=== PATIENT | male | born 1955 | race Caucasian/White ===

== ENCOUNTER 2023-11-25 06:34 | Inpatient (IN) | payer MEDICARE, OTHER, SELFPAY ==
--- NOTE | 2023-11-16 06:45 | CM ---
Addendum entered by Merary Jamison 11/25/23 06:19:
Correction to below: surgery date is 11/25/23.
Original Note:
Patient is scheduled for an elective L TSA on 11/22/23. Spoke with patient and his prior to surgery via telephone. Patient had R TKR and L TKR at , both in 2021. Reintroduced role of Orthopedic Navigator. Patient reports that he lives with his
in a two story home. There are six steps to enter and a flight of steps to the second floor. He has a bedroom on the first floor which is where he plans to stay initially. He currently functions independently. He has a cane and rolling walker.
He has had services through [facility]. PCP is Dr. Rufus Lewis.
Discussed orthopedic program and post surgical plans. Reviewed anticipated length of stay and assistance that he may need at discharge. Explained that goal is for him to return home at discharge. Also reviewed MD follow up, home exercise program
after surgery and transition to outpatient therapy. Patient is in agreement with tentative plan and states that his will be home with him and can assist if needed.
Patient will complete online education.
Plan: Orthopedic Navigator will be involved in the care of patient after surgery and will reassess discharge needs at that time.
[2023-11-22 15:43] VITALS: BMI 36.0
[2023-11-25] VITALS (14 sets, daily range): BP systolic 110–146; BP diastolic 61–92; BMI 36.0; BMI 36.1
--- NOTE | 2023-11-25 11:37 | W.PN.UPDATE ---
Update Note
Progress Note Update
L shoulder OA s/p L TSA w/ Dr Robert 11/25/23
- s/p L TKA, 12/2021, and R TKA, 06/2022, by Dr Sargent
DVT prophylaxis - Xarelto at modified dosing, b/l venous foot pumps
- Can resume Xarelto 20 mg qPM on POD 3 if remaining hemodynamically stable
HTN - + parameters - monitor BP
NSVT and Permanent AF - monitor on tele
- Continue Flecainide and Metoprolol
- Xarelto resumption as stated above
ROJELIO, non-compliant w/ device - monitor on tele
- IS
- Add supplemental O2 HS
GERD - resume PPI therapy BID
BPH w/ urinary retention - monitor voids
- Bladder scan and straight cath prn. Will check PVRs
- Will resume Finasteride and Tamsulosin immediately after surgery
HLD
DDD
?MRSA hx - all MRSA swabs on file negative
Obesity, BMI 36.0
[2023-11-25] MEDS: NORMOSOL-R 1000 IV ×2 (12:06→16:09)
[2023-11-25] MEDS: TYLENOL 1000 MG PO (12:06)
[2023-11-25] MEDS: CELEBREX 200 MG PO (12:06)
--- NOTE | 2023-11-25 12:09 | CM ---
Reviewed chart. Patient admitted as planned for elective L TSA. The discharge plan is for patient to return home at discharge. He will have support from his when he goes home. Reviewed that he will do a home exercise program upon discharge
after surgery and that he will not need VN services. Also reviewed transition to outpatient PT and MD follow up.
Patient will use [facility] pharmacy for discharge prescriptions.
No needs currently identified.
[2023-11-25] MEDS: FLOMAX 0.400000000000000022 MG PO ×2 (15:59→21:14)
[2023-11-25] MEDS: TYLENOL 650 MG PO ×2 (17:07→19:35)
[2023-11-25] MEDS: XARELTO 10 MG PO (17:07)
--- NOTE | 2023-11-25 18:10 | PTCARENOTE ---
Pt received from PACU in unit bed. AAOx3. Expressing 1/10 pain at site of L TSA. Neurovascular assessment as documented. (L) shoulder with dressing C/D/I. (L) arm in sling; non-weight bearing ordered. SaO2 96% on room air. Lungs clear to
auscultation. Sinus rhythm with 1st degree AV block on environmental monitoring technician. Radial and pedal pulses palpable. Abdomen round. (+) bowel sounds. Pt with history of retention following surgery. Assisted oob chair with minimal assistance. Pt ate 100% of
dinner. Normosol infusing @ 100ml/hr.
[2023-11-25] MEDS: PROTONIX 20 MG PO (19:35)
[2023-11-25] MEDS: COLACE 100 MG PO (19:35)
[2023-11-25] MEDS: SENOKOT 17.1999999999999993 MG PO (19:35)
[2023-11-25] MEDS: BACTROBAN 2% OINTMENT 1 APPLIC NASAL (19:36)
[2023-11-25] MEDS: TAMBOCOR 100 MG PO (19:36)
[2023-11-25] MEDS: ANCEF 5 IV (19:36)
[2023-11-25] MEDS: LIPITOR 20 MG PO (21:16)
[2023-11-26] MEDS: TYLENOL PO ×2 (00:30→04:00)
[2023-11-26] MEDS: ROXICODONE 5 MG PO (01:34)
[2023-11-26 03:00] VITALS: BP 122/64
[2023-11-26] MEDS: ANCEF 5 IV (04:29)
--- NOTE | 2023-11-26 04:48 | PTCARENOTE ---
Pt voiding without difficulty, clear yellow, PVR for 197ml @ this time.
[2023-11-26 07:35] VITALS: BP 125/75
[2023-11-26] MEDS: TYLENOL 650 MG PO (07:55)
[2023-11-26] MEDS: PROTONIX 20 MG PO (07:55)
[2023-11-26] MEDS: TAMBOCOR 100 MG PO (07:55)
[2023-11-26] MEDS: SENOKOT 17.1999999999999993 MG PO (07:55)
[2023-11-26] MEDS: BACTROBAN 2% OINTMENT 1 APPLIC NASAL (07:56)
[2023-11-26] MEDS: COLACE 100 MG PO (07:56)
[2023-11-26] MEDS: TOPROL XL 25 MG PO (07:56)
[2023-11-26] MEDS: PROSCAR 5 MG PO (07:56)
--- NOTE | 2023-11-26 08:47 | W.PN.ORTHO ---
Today's Communication / Plan
-
PT/OT
Sling
Xarelto
Discharge to home today
Assessment
.
Distal Motor Intact: Yes
Dressing:
Clean, dry and intact.
Plan
.
Surgery / Date: L TSA 11/25/23 Jakob
DVT Prophylaxis: Other (Xarelto)
Activity:
Out of bed.
PT/OT
Discharge Plan: Home
Subjective
.
.:
Patient resting comfortably.
Vital Signs and Labs
.
Vital Signs and Labs:
Temp Pulse Resp BP Pulse Ox
98.1 F 66 18 125/75 96
11/26/23 07:35 11/26/23 07:35 11/26/23 07:35 11/26/23 07:35 11/26/23 07:35
Non-invasive Hgb result: 13.9
--- NOTE | 2023-11-26 08:52 | W.DS.TRANS ---
DC Summary - Electrician
-
Discharge Instructions:
Discharge Diagnosis/Procedures L shoulder OA s/p L TSA w/ Dr Robert 11/25/23
Diet Regular
Activity As tolerated
Additional Activity Non-weightbearing left upper extremity.
Driving Restrictions Not until seen by your Dr
Bathing Restrictions OK to Shower
Wound Care Leave dressing on until seen by surgeon's office
for follow-up in 2 weeks.
Instructions:
Stand-Alone Forms: Total Shoulder Replacement D/C
Changes to Home Medications: No
Discharge Medications:
DC Medications w/original date entered in [employer]
flecainide 100 mg tablet 100 mg PO BID 12/16/21
omeprazole magnesium 20 mg tablet,delayed release (Prilosec OTC) 20 mg PO BID 12/16/21
atorvastatin 20 mg tablet 20 mg PO HS ##0 01/15/22
metoprolol succinate 25 mg tablet,extended release 24 hr 25 mg PO DAILY 01/15/22
finasteride 5 mg tablet 5 mg PO DAILY 07/01/22
valsartan 160 mg-hydrochlorothiazide 12.5 mg tablet 1 tab PO DAILY 07/01/22
rivaroxaban 20 mg tablet (Xarelto) 20 mg PO QPM #1 tab 07/17/22
tamsulosin 0.4 mg capsule 0.4 mg PO HS Urinary issue #1 cap 07/17/22
acetaminophen 325 mg tablet 650 mg PO PRN PRN pain 10/24/23
multivitamin 1 tab PO DAILY 11/22/23
omega-3 fatty acids 500 mg capsule 500 mg PO DAILY 11/22/23
mupirocin 2 % topical ointment topical BID 11/25/23
oxycodone 5 mg capsule 5 mg PO Q4H PRN Pain #20 caps 11/26/23
Home Medication Changes
Pending Results: No
[2023-11-26 09:31] VITALS: BP 118/70; PULSE 62; O2SAT 99
[2023-11-26] MEDS: COMPAZINE 5 MG IV (09:38)
[2023-11-26 10:45] VITALS: BP 113/65
--- NOTE | 2023-11-26 12:44 | CM ---
Pt for dc to home no needs.
IMM issued, signed, and on chart.
== END 2023-11-26 11:50 | disposition home or self-care (01) | DRG 483 ==
LOC: 2 SOUTH 06:34
PROVIDERS: ADMITTING PHYSICIAN Specialist; FAMILY PHYSICIAN Family Medicine
PROC: 0RRK0JZ Replacement of Left Shoulder Joint with Synthetic Substitute, Open Approach (ICD-10-PCS; 2023-11-25)
PROC: 0LS40ZZ Reposition Left Upper Arm Tendon, Open Approach (ICD-10-PCS; 2023-11-25)
DX: M19.012 Primary osteoarthritis, left shoulder (principal); N40.1 Benign prostatic hyperplasia with lower urinary tract symptoms; E66.9 Obesity, unspecified; Z68.36 Body mass index [BMI] 36.0-36.9, adult; R33.8 Other retention of urine
CPT/HCPCS: 73020; 97110; 97166; 97535; C1713; C1776

== ENCOUNTER → 2024-02-13 07:33 | Outpatient (REF) | payer MEDICARE, OTHER, SELFPAY | LOC: EMG 07:33 | PROVIDERS: ATTENDING PHYSICIAN Specialist; FAMILY PHYSICIAN Family Medicine | DX: R20.0 Anesthesia of skin (principal); R20.2 Paresthesia of skin | CPT/HCPCS: 95886; 95909 ==